=== PATIENT | female | born 2005 | race Caucasian/White ===

== ENCOUNTER 2023-07-23 17:54 | Emergency (ER) | payer BC, SELFPAY ==
[2023-07-23 18:01] VITALS: BP 125/87; PULSE 93; RESP 16; TEMP 36.4; O2SAT 99
[2023-07-23 18:52] VITALS: PULSE 98
--- NOTE | 2023-07-23 18:56 | ECG_ITS ---
SEE SCANNED COPY FOR CONFIRMED REPORT MTDD
[2023-07-23 18:57] VITALS: BP 123/88; PULSE 75; RESP 16; O2SAT 100
--- NOTE | 2023-07-23 18:59 | ED.DIZZY ---
HPI - Dizziness General Chief Complaint: Dizziness Stated Complaint: dizzy, gait issues x 6 days Time Seen by Provider: 07/23/23 18:40 History of Present Illness HPI Narrative: 18-year-old female presents to emergency department for dizziness and headaches for 6 days. Patient states during the today she feels lightheaded and at night she feels like the room is spinning. States her dizziness is worse when she is sitting down and lying flat and is better when she is moving. She is also reporting some fullness in her years and states she has seasonal allergies. She states her headaches have been to the bilateral temporal regions. She endorses she has had multiple concussions in the past, her past concussion was 2 years ago. Denies recent head injury or trauma, vision changes, focal numbness or weakness, chest pain or shortness of breath, abdominal pain, fever, sore throat or otalgia, nausea, vomiting, diarrhea, dysuria or hematuria. Unknown LMP, she currently has an IUD in place. Related Data Allergies Allergy/AdvReac Type Severity Reaction Status Date / Time No Known Allergies Allergy Verified 07/23/23 17:59 Review of Systems Review of Systems: CONSTITUTIONAL: Denies fever, chills, or sweats. EYES: Denies visual changes, redness, or discharge. ENT: Denies rhinorrhea, congestion, sore throat, or otalgia. CARDIOVASCULAR: Denies chest pain, palpitations, or edema. RESPIRATORY: Denies cough or dyspnea. GASTROINTESTINAL: Denies abdominal pain, nausea, vomiting, or diarrhea. GENITOURINARY: Denies dysuria or hematuria. SKIN: Denies rash or itching. MUSCULOSKELETAL: Denies back pain, joint pain, or myalgia. NEUROLOGIC: See HPI PSYCHIATRIC: Denies anxiety or depression. Exam Narrative: GENERAL: Well-appearing, well-nourished, and in no acute distress. HEAD: Normocephalic, atraumatic. EYES: PERRLA and EOMI. ENT: Nares clear, no rhinorrhea or epistaxis. Mucous membranes moist. Bilateral serous effusions. No bulging or erythema to tympanic membranes, canals are normal. No pain with movement of pinna or mastoid tenderness. NECK: Supple. CHEST: Clear to auscultation. No respiratory distress. HEART: Regular rate and rhythm. No murmur heard. Normal peripheral pulses. ABDOMEN: Soft, nontender, nondistended, normal active bowel sounds. EXTREMITIES: Normal range of motion. No edema. SKIN: Warm, dry, no rash. NEURO: No focal deficits. Alert and oriented x3. Cranial nerves 2-12 intact. Strength 5/5 in BUE and BLE. Sensation intact throughout. No pronator drift, normal [id number]. Course Vital Signs Vital signs: Vital Signs Temperature 97.6 F 07/23/23 18:01 Pulse Rate 93 07/23/23 18:01 Respiratory Rate 16 07/23/23 18:01 Blood Pressure 125/87 07/23/23 18:01 Pulse Oximetry 99 07/23/23 18:01 Temperature 97.6 F 07/23/23 18:01 Pulse Rate 89 07/23/23 20:53 Respiratory Rate 18 07/23/23 20:53 Blood Pressure 111/89 07/23/23 20:53 Pulse Oximetry 100 07/23/23 20:53 MDM - Dizziness MDM Narrative Medical decision making narrative: 18-year-old female presents to the emergency department for dizziness and headaches for the past 6 days. See HPI for further history. Triage vital stable. She is neurovascularly intact on exam. CBC w/o leukocytosis or anemia. Chemistries unremarkable other than a elevated BUN to 25. UA is unremarkable, negative. COVID, flu RSV are negative. Mag normal. Labs and imaging discussed with the patient. She does have bilateral serous effusions and complaining of ear fullness. Suspect vertigo secondary to this. She received IV fluids, headache cocktail and meclizine with improvement. Upon re-evaluation, she has resolution of her headache and dizziness. Encouraged her to drink plenty of fluids, take daily Zyrtec or Claritin to follow-up closely with her PCP. Will also prescribe meclizine. Strict ED return precautions discussed. She is agreeable to plan
--- NOTE | 2023-07-23 19:05 | PC.NURSE ---
Report given to DEENA Workman
[2023-07-23] MEDS: ACETAMINOPHEN 500 MG TABLET 1000 MG PO (19:32)
[2023-07-23] MEDS: MECLIZINE HCL 25 MG TABLET PO (19:32)
[2023-07-23] MEDS: PROCHLORPERAZINE EDISYLATE 10 MG/2 ML VIAL IV PUSH (19:32)
[2023-07-23 19:44] LABS: Basophils Absolute Auto 0.1 K/mm3 (0.0-0.1); Basophils Percent Auto 0.6 % (0.2-1.2); Eosinophils Absolute Auto 0.5 K/mm3 (0-0.3); Eosinophils Percent Auto 5.6 % (0-4.4); Hematocrit 41.8 % (37.0-47.0); Hemoglobin 14.2 g/dL (12.0-15.0); Immature Granulocyte Absolute 0.01 K/mm3 (0.00-0.031); Immature Granulocyte Percent A 0.1 % (0-0.5); Lymphocytes Absolute Auto 3.05 K/mm3 (0.9-3.2); Mean Corpuscular Volume 88.2 fl (80-100); Mean Platelet Volume 10.5 fl (7.4-10.4); Monocytes Absolute Auto 0.8 K/mm3 (0.1-0.6); Monocytes Percent Auto 8.9 % (2.6-8.5); Neutrophils Absolute Auto 4.3 K/mm3 (1.3-6.7); Neutrophils Percent Auto 49.8 % (45.5-73.1); Platelet Count Result 244 k/mm3 (150-375); Red Blood Count 4.74 M/mm3 (4.2-5.4); Red Cell Distribution Width 11.9 % (11.5-14.5); White Blood Count 8.7 K/mm3 (4.5-10.0)
[2023-07-23 20:01] LABS: Appearance Urine Clear (Clear); Bilirubin Urine Negative (Negative); Blood Urine Negative (Negative); Color Urine Yellow (Yellow); Glucose Urine UA Negative (Negative); Ketones Urine Negative (Negative); Leukocyte Esterase Ur Negative LEU/UL (Negative); Nitrate Urine Negative (Negative); Protein Urine Negative (Negative); Specific Grav Ur 1.029 (1.001-1.035); Urobilinogen Urine 0.2 mg/dL (<2.0); pH Urine 6.5 (5.0-9.0)
[2023-07-23 20:03] LABS: Alanine Aminotransferase 20 U/L (6-35); Albumin Level 4.9 g/dL (3.5-5.1); Alkaline Phosphatase 58 U/L (38-126); Anion Gap 8 mmol/L (4-12); Aspartate Amino Transferase 36 U/L (14-36); Bilirubin,Total 0.4 mg/dL (0.2-1.3); Blood Urea Nitrogen 25 mg/dL (7-17); Calcium 9.7 mg/dL (8.4-10.2); Carbon Dioxide 25 mmol/L (22-30); Chloride 104 mmol/L (98-107); Estimated CRCL calculation 100 ml/min; Estimated Glomerular Filt Rate > 60; Glucose 94 mg/dL (65-110); Sodium 137 mmol/L (137-145)
[2023-07-23 20:14] LABS: Add Urine Microscopic? NO
[2023-07-23] MEDS: diphenhydrAMINE HCl INJ 50 MG/ML VIAL 12.5 MG IV PUSH (20:17)
[2023-07-23] MEDS: SODIUM CHLORIDE 0.9% IV 1,000 ML 999 ML IV CONT (20:17)
[2023-07-23 20:22] LABS: Influenza A QL RT-PCR Negative (Negative); Influenza B QL RT-PCR Negative (Negative); RSV RNA, RT-PCR Negative (Negative); SARS-CoV-2 RNA PCR Negative (Negative)
[2023-07-23 20:34] VITALS: BP 118/65; PULSE 78; RESP 16; O2SAT 100
[2023-07-23 20:53] VITALS: BP 111/89; PULSE 89; RESP 18; O2SAT 100
== END 2023-07-23 20:54 | disposition home or self-care (01) ==
PROVIDERS: Emergency Provider Physician Assistant
DX: R42 Dizziness and giddiness (principal); G44.209 Tension-type headache, unspecified, not intractable; H93.8X3 Other specified disorders of ear, bilateral
CPT/HCPCS: 36415; 80053; 81003; 81025; 83735; 85025; 87637; 93005; 96361; 96374; 96375; 99284; A9270; J0780; J1200; J7030